=== PATIENT | male | born 1980 | race Hispanic/Latino ===

== ENCOUNTER 2018-04-20 11:31 | Emergency (ER) | payer OTHER, SELFPAY ==
--- NOTE | 2018-04-20 12:43 | RAD REPORT ---
EXAM DESCRIPTION: US - Scrotum Testicles - 04/20/2018 12:23 pm CLINICAL HISTORY: Persistent left-sided scrotal pain following trauma COMPARISON: None. FINDINGS: Testicular tissue is homogeneous. No intratesticular mass or intratesticular hemorrhage. D oppler evaluation shows a normal, symmetric intratesticular blood flow pattern within each testicle. Left epididymis is enlarged and slightly hyperemic relative to the right. No spermatocele or other ma ss within the left epididymis. Prominent veins are present bilaterally. Veins accentuated with Valsal va maneuver. IMPRESSION: Normal intratesticular blood flow. No testicular mass or hemorrhage. Mildly enlarged left epididymis with hyperemia relative to the right. Small bilateral varicoceles.
--- NOTE | 2018-04-20 12:56 | ER ---
Nurse's Notes [facility] Name: Noah Mendez Jr Age: 38 yrs Sex: Male : 1980 Arrival Date: 04/20/2018 Time: 11:35 Bed 20 Private MD: Ebenezer Garrett E Diagnosis: Testicular Pain s/p trauma Presentation: 04/20 11:47 Presenting complaint: Patient states: I got kneed in the left testicle on Thursday and la1 since then I am having intense pain down there. Pt states "it feels like it splint in half". Transition of care: patient was not received from another setting of care. Onset of symptoms was April 20, 2018. Risk Assessment: Do you want to hurt yourself or someone else? Patient reports no desire to harm self or others. Initial Sepsis Screen: Does the patient meet any 2 criteria? No. Patient's initial sepsis screen is negative. Does the patient have a suspected source of infection? No. Patient's initial sepsis screen is negative. Care prior to arrival: None. 11:47 Method Of Arrival: Ambulatory la1 11:47 Acuity: LINSEY 3 la1 Triage Assessment: 12:05 General: Appears in no apparent distress. uncomfortable, Behavior is cooperative, bp appropriate for age, anxious. Pain: Complains of pain in groin. Historical: - Allergies: 11:49 No Known Allergies; la1 - PMHx: 11:49 chronic back pain; Hypertension; la1 - PSHx: 11:49 None; la1 - Immunization history:: Adult Immunizations up to date. - Social history:: Smoking status: Patient/guardian denies using tobacco. - Ebola Screening: : No symptoms or risks identified at this time. Screenin:07 Abuse screen: Denies threats or abuse. Denies injuries from another. Nutritional bp screening: No deficits noted. Tuberculosis screening: No symptoms or risk factors identified. Fall Risk None identified. Assessment: 12:05 General: Appears in no apparent distress. uncomfortable, Behavior is cooperative, bp appropriate for age, anxious. Pain: Complains of pain in groin. Neuro: Level of Consciousness is awake, alert, obeys commands, Oriented to person, place, time, situation, Appropriate for age. Cardiovascular: No deficits noted. Respiratory: Airway is patent Respiratory effort is even, unlabored, Respiratory pattern is regular, symmetrical. GI: No signs and/or symptoms were reported involving the gastrointestinal system. : Swelling noted on scrotum. EENT: No deficits noted. Derm: No deficits noted. Musculoskeletal: Circulation, motion, and sensation intact. Range of motion: intact in all extremities. 12:11 Reassessment: PT TO U/S. bp 13:08 Reassessment: PT D/C HOME AMBULATORY, DX WITH TESTICULAR TRAUMA. bp Vital Signs: 11:49 BP 120 / 89; Pulse 66; Resp 16; Temp 97.6; Pulse Ox 98% on R/A; Weight 81.65 kg; Height la1 5 ft. 10 in. (177.80 cm); 13:08 BP 115 / 75; Pulse 67; Resp 14; Pulse Ox 98% ; bp 11:49 Body Mass Index 25.83 (81.65 kg, 177.80 cm) la1 ED Course: 11:35 Patient arrived in ED. mr 11:35 Ebenezer Garrett MD is Private Physician. mr 11:48 Triage completed. la1 11:49 Arm band placed on right wrist. la1 11:55 Merlyn Das [facility]-C [facility]. kb 11:55 Roni Morrison MD is Attending Physician. kb 12:05 Ranjith Velasco, RN is Primary Nurse. bp 12:07 Patient has correct armband on for positive identification. Placed in gown. Bed in low bp position. Call light in reach. Side rails up X2. 12:22 US Scrotum Testicles In Process Unspecified. EDMS 13:08 No provider procedures requiring assistance completed. Patient did not have IV access bp during this emergency room visit. Administered Medications: No medications were administered Outcome: 12:56 Discharge ordered by . kb 13:09 Discharged to home ambulatory. bp 13:09 Condition: stable 13:09 Discharge instructions given to patient, Instructed on discharge instructions, follow up and referral plans. Demonstrated understanding of instructions, follow-up care. 13:09 Patient left the ED. bp Signatures: Dispatcher [employer] EDMS Merlyn Das FNP-C FNP-Ckb Shweta Myrick AlondraShantanu, RN RN la1 Ranjith Velasco, RN RN bp
--- NOTE | 2018-04-20 12:56 | EDPHYS ---
Physician Documentation [facility] Name: Noah Mendez Jr Age: 38 yrs Sex: Male : 1980 Arrival Date: 04/20/2018 Time: 11:35 Bed 20 Private MD: Ebenezer Garrett E ED Physician Roni Morrison HPI: 04/20 12:13 This 38 yrs old Male presents to ER via Ambulatory with complaints of kb Testicular Pain. 12:13 The patient presents with scrotal pain, of the left side, with swelling. Onset: The kb symptoms/episode began/occurred 4 day(s) ago. Modifying factors: The symptoms are alleviated by nothing, the symptoms are aggravated by movement, pressure. Associated signs and symptoms: The patient has no apparent associated signs or symptoms. Severity of symptoms: At their worst the symptoms were moderate, in the emergency department the symptoms are unchanged. The patient has not experienced similar symptoms in the past. The patient has not recently seen a physician. Pt reports blunt trauma to scrotum on Thursday, pain to left testicle since then. Reports pain has been getting progressively worse. . Historical: - Allergies: 11:49 No Known Allergies; la1 - PMHx: 11:49 chronic back pain; Hypertension; la1 - PSHx: 11:49 None; la1 - Immunization history:: Adult Immunizations up to date. - Social history:: Smoking status: Patient/guardian denies using tobacco. - Ebola Screening: : No symptoms or risks identified at this time. ROS: 12:13 Constitutional: Negative for fever, chills, and weight loss, Cardiovascular: Negative kb for chest pain, palpitations, and edema, Respiratory: Negative for shortness of breath, cough, wheezing, and pleuritic chest pain, Abdomen/GI: Negative for abdominal pain, nausea, vomiting, diarrhea, and constipation, Back: Negative for injury and pain, MS/Extremity: Negative for injury and deformity, Skin: Negative for injury, rash, and discoloration, Neuro: Negative for headache, weakness, numbness, tingling, and seizure. 12:13 : Positive for testicular pain Exam: 12:13 Constitutional: This is a well developed, well nourished patient who is awake, alert, kb and in no acute distress. Head/Face: Normocephalic, atraumatic. Chest/axilla: Normal chest wall appearance and motion. Nontender with no deformity. No lesions are appreciated. Cardiovascular: Regular rate and rhythm with a normal S1 and S2. No gallops, murmurs, or rubs. Normal PMI, no JVD. No pulse deficits. Respiratory: Lungs have equal breath sounds bilaterally, clear to auscultation and percussion. No rales, rhonchi or wheezes noted. No increased work of breathing, no retractions or nasal flaring. Abdomen/GI: Soft, non-tender, with normal bowel sounds. No distension or tympany. No guarding or rebound. No evidence of tenderness throughout. Skin: Warm, dry with normal turgor. Normal color with no rashes, no lesions, and no evidence of cellulitis. MS/ Extremity: Pulses equal, no cyanosis. Neurovascular intact. Full, normal range of motion. Neuro: Awake and alert, GCS 15, oriented to person, place, time, and situation. Cranial nerves II-XII grossly intact. Motor strength 5/5 in all extremities. Sensory grossly intact. Cerebellar exam normal. Normal gait. 12:13 : Male external genitalia: swelling: testicle, tenderness, that is moderate. Vital Signs: 11:49 BP 120 / 89; Pulse 66; Resp 16; Temp 97.6; Pulse Ox 98% on R/A; Weight 81.65 kg; Height la1 5 ft. 10 in. (177.80 cm); 13:08 BP 115 / 75; Pulse 67; Resp 14; Pulse Ox 98% ; bp 11:49 Body Mass Index 25.83 (81.65 kg, 177.80 cm) la1 MDM: 11:55 Patient medically screened. kb 12:19 Data reviewed: vital signs, nurses notes. Data interpreted: Pulse oximetry: on room air kb is 98 %. Interpretation: normal. 12:55 Counseling: I had a detailed discussion with the patient and/or guardian regarding: the kb historical points, exam findings, and any diagnostic results supporting the discharge/admit diagnosis, radiology results, the need for outpatient follow up, a urologist, to return to the emergency department if symptoms worsen or persist or if there are any questions or concerns that arise at home. 04/20 11:59 Order name: Scrotum Testicles; Complete Time: 12:45 kb Administered Medications: No medications were administered Disposition: 18:41 Co-signature as Attending Physician, Roni Morrison MD available for consultation at ps1 all times. Disposition: 04/20/18 12:56 Discharged to Home. Impression: Testicular Pain s/p trauma. - Condition is Stable. - Discharge Instructions: Testicular Self-Exam, [id number]. - Medication Reconciliation Form, Thank You Letter, Antibiotic Education, Prescription Opioid Use form. - Follow up: Emergency Department; When: As needed; Reason: Worsening of condition. Follow up: Private Physician; When: 2 - 3 days; Reason: Recheck today's complaints, Continuance of care, Re-evaluation by your physician. Signatures: Dispatcher [employer] EDMS Merlyn Das, SAMUEL-C [employer]-Shantanu Phillips RN RN la1 Ranjith Velasco RN RN Roni Bentley MD MD ps1 Corrections: (The following items were deleted from the chart) 13:09 12:56 04/20/2018 12:56 Discharged to Home. Impression: Testicular Pain s/p trauma. bp Condition is Stable. Forms are Medication Reconciliation Form, Thank You Letter, Antibiotic Education, Prescription Opioid Use. Follow up: Emergency Department; When: As needed; Reason: Worsening of condition. Follow up: Private Physician; When: 2 - 3 days; Reason: Recheck today's complaints, Continuance of care, Re-evaluation by your physician. kb
== END 2018-04-20 13:09 | disposition home or self-care (01) ==
LOC: ER 11:31
DX: N50.812 Left testicular pain (principal); I10 Essential (primary) hypertension
CPT/HCPCS: 76870; 99283

== ENCOUNTER 2018-06-18 05:26 | Emergency (ER) | payer SELFPAY ==
[2018-06-18] MEDS ORDERED: LIDOCAINE 1% W/EPI 1:100,000 MDV 50 ML VIAL ONE (05:57)
--- NOTE | 2018-06-18 06:00 | EDPHYS ---
Physician Documentation [facility] Name: Noah Mendez Jr Age: 38 yrs Sex: Male : 1980 Arrival Date: 06/18/2018 Time: 05:29 Bed 5 Private MD: Ebenezer Garrett E ED Physician Bart Moffett HPI: 06/18 05:49 This 38 yrs old Male presents to ER via Ambulatory with complaints of Boil. darern 05:49 The patient presents with an abscess of the right gluteus alanna. Description: The darren affected area is small, confluent. Description: The affected area is small, confluent, erythematous, fluctuant, pointed, swollen. Onset: The symptoms/episode began/occurred 1 week(s) ago. Possible cause(s): abrasion. Associated signs and symptoms: The patient has no apparent associated signs or symptoms. Modifying factors: the symptoms are alleviated by remaining still, the symptoms are aggravated by walking, pressure, squeezing the lesion and expressing the contents, touching. Historical: - Allergies: 05:42 No Known Allergies; tl2 - Home Meds: 05:42 [place] 10-325 mg Oral tab 1 tab every 6 hours [Active]; Soma 350 mg Oral tab 1 tab 3 tl2 times per day [Active]; - PMHx: 05:42 chronic back pain; Hypertension; Pt has lost weight and BP has been controlled without tl2 medication; - Immunization history:: Adult Immunizations up to date. - Social history:: Smoking status: Patient/guardian denies using tobacco. - Ebola Screening: : No symptoms or risks identified at this time. - Family history:: not pertinent. ROS: 05:49 Constitutional: Negative for fever, chills, and weight loss, Eyes: Negative for injury, darren pain, redness, and discharge, ENT: Negative for injury, pain, and discharge, Neck: Negative for injury, pain, and swelling, Cardiovascular: Negative for chest pain, palpitations, and edema, Respiratory: Negative for shortness of breath, cough, wheezing, and pleuritic chest pain, Abdomen/GI: Negative for abdominal pain, nausea, vomiting, diarrhea, and constipation, Back: Negative for injury and pain, : Negative for injury, bleeding, discharge, and swelling, MS/Extremity: Negative for injury and deformity, Neuro: Negative for headache, weakness, numbness, tingling, and seizure, Psych: Negative for depression, anxiety, suicide ideation, homicidal ideation, and hallucinations, Allergy/Immunology: Negative for hives, rash, and allergies, Endocrine: Negative for neck swelling, polydipsia, polyuria, polyphagia, and marked weight changes. 05:49 Skin: Positive for abscess, discoloration, erythema, of the right gluteus alanna. Exam: 05:49 Constitutional: This is a well developed, well nourished patient who is awake, alert, darren and in no acute distress. Head/Face: Normocephalic, atraumatic. Eyes: Pupils equal round and reactive to light, extra-ocular motions intact. Lids and lashes normal. Conjunctiva and sclera are non-icteric and not injected. Cornea within normal limits. Periorbital areas with no swelling, redness, or edema. ENT: Nares patent. No nasal discharge, no septal abnormalities noted. Tympanic membranes are normal and external auditory canals are clear. Oropharynx with no redness, swelling, or masses, exudates, or evidence of obstruction, uvula midline. Mucous membranes moist. Neck: Trachea midline, no thyromegaly or masses palpated, and no cervical lymphadenopathy. Supple, full range of motion without nuchal rigidity, or vertebral point tenderness. No Meningismus. Chest/axilla: Normal chest wall appearance and motion. Nontender with no deformity. No lesions are appreciated. Cardiovascular: Regular rate and rhythm with a normal S1 and S2. No gallops, murmurs, or rubs. Normal PMI, no JVD. No pulse deficits. Respiratory: Lungs have equal breath sounds bilaterally, clear to auscultation and percussion. No rales, rhonchi or wheezes noted. No increased work of breathing, no retractions or nasal flaring. Abdomen/GI: Soft, non-tender, with normal bowel sounds. No distension or tympany. No guarding or rebound. No evidence of tenderness throughout. Back: No spinal tenderness. No costovertebral tenderness. Full range of motion. Male : Normal genitalia with no discharge or lesions. MS/ Extremity: Pulses equal, no cyanosis. Neurovascular intact. Full, normal range of motion. Neuro: Awake and alert, GCS 15, oriented to person, place, time, and situation. Cranial nerves II-XII grossly intact. Motor strength 5/5 in all extremities. Sensory grossly intact. Cerebellar exam normal. Normal gait. Psych: Awake, alert, with orientation to person, place and time. Behavior, mood, and affect are within normal limits. 05:49 Skin: Appearance: Color: erythematous, black, Temperature: warm, abscess, that is small, of the right hip, with induration, with surrounding cellulitis, that is moderate. Vital Signs: 05:42 BP 145 / 101; Pulse 81; Resp 18; Temp 97.8(O); Pulse Ox 98% on R/A; Weight 81.65 kg; tl2 Height 5 ft. 9 in. (175.26 cm); Pain 10/10; 06:58 BP 135 / 84; Pulse 71; Resp 18; Pulse Ox 100% on R/A; tl2 05:42 Body Mass Index 26.58 (81.65 kg, 175.26 cm) tl2 Procedures: 06:02 I \T\ D: Incision and drainage was performed for an abscess of the right Prepped with [facility] Betadine, alcohol, Anesthetized with 10 ml's 1% Lidocaine w/ Epi. Incised with #11 blade. Drained moderate amount Packed with iodoform gauze, Dressing: non-Adherent dressing, the patient tolerated the procedure well. MDM: 05:45 Patient medically screened. [facility] 05:49 Data reviewed: vital signs, nurses notes. [facility] 06/18 05:49 Order name: Dressing - Wound; Complete Time: 06:[address] [facility] 06/18 05:49 Order name: Gloves, Sterile; Complete Time: 05:[address] [facility] 06/18 05:49 Order name: Setup Suture Tray; Complete Time: 05:[address] [facility] 06/18 06:03 Order name: Blood Sugar; Complete Time: 06:[address] [facility] Administered Medications: 06:23 Drug: Doxycycline 200 mg Route: PO; tl2 06:58 Follow up: Response: No adverse reaction tl2 06:23 Drug: Bactrim (160 mg-800 mg (DS) 1 tablet Route: PO; tl2 06:59 Follow up: Response: No adverse reaction tl2 06:35 Drug: Lidocaine-Epinephrine -1%: (1:100,000) 10 ml Volume: 20 ml; Route: Infiltration; tl2 Point of Care Testing: Blood Glucose: 06:20 Blood Glucose: 130 mg/dL; oe Ranges: Critical Glucose Levels:Adult <50 mg/dl or >400 mg/dl <40 mg/dl or >180 mg/dl Disposition: 06/18/18 05:59 Discharged to Home. Impression: Cutaneous abscess of right lower limb. - Condition is Stable. - Discharge Instructions: Skin Abscess, Incision and Drainage, Skin Abscess, [id number], Incision and Drainage, Care After. - Prescriptions for Bactroban 2 % Topical Ointment - Apply to affected area 1 application by TOPICAL route every 12 hours; 30 gram. Tylenol- Codeine #3 300-30 mg Oral Tablet - take 2 tablets by ORAL route every 6 hours As needed; 26 tablet. Doxycycline Hyclate 100 mg Oral Tablet - take 1 tablet by ORAL route every 12 hours; 20 tablet. Bactrim DS 800- 160 mg Oral Tablet - take 1 tablet by ORAL route every 12 hours for 10 days; 28 tablet. - Medication Reconciliation Form, Thank You Letter, Antibiotic Education, Prescription Opioid Use form. - Follow up: Ebenezer Garrett MD; When: 2 - 3 days; Reason: Recheck today's complaints, Continuance of care, Re-evaluation by your physician. - Problem is new. - Symptoms have improved. Signatures: Bart Moffett MD MD cha Knox, Taylor, RN RN tl2 Corrections: (The following items were deleted from the chart) 06:59 05:59 06/18/2018 05:59 Discharged to Home. Impression: Cutaneous abscess of right lower tl2 limb. Condition is Stable. Forms are Medication Reconciliation Form, Thank You Letter, Antibiotic Education, Prescription Opioid Use. Follow up: Ebenezer Grarett; When: 2 - 3 days; Reason: Recheck today's complaints, Continuance of care, Re-evaluation by your physician. Problem is new. Symptoms have improved. darren
--- NOTE | 2018-06-18 06:00 | ER ---
Nurse's Notes [facility] Name: Noah Mendez Jr Age: 38 yrs Sex: Male : 1980 Arrival Date: 06/18/2018 Time: 05:29 Bed 5 Private MD: Ebenezer Garrett E Diagnosis: Cutaneous abscess of right lower limb Presentation: 06/18 05:39 Presenting complaint: Patient states: abscess on left buttock, redness and swelling tl2 noted. No drainage. Eschar in center of abscess noted. Pt denies fever or feeling ill. States White is not helping pain. Transition of care: patient was not received from another setting of care. Onset of symptoms was June 11, 2018. Risk Assessment: Do you want to hurt yourself or someone else? Patient reports no desire to harm self or others. Initial Sepsis Screen: Does the patient meet any 2 criteria? No. Patient's initial sepsis screen is negative. Does the patient have a suspected source of infection? No. Patient's initial sepsis screen is negative. Care prior to arrival: None. 05:39 Method Of Arrival: Ambulatory tl2 05:39 Acuity: LINSEY 3 tl2 Triage Assessment: 05:42 General: Appears in no apparent distress. comfortable, Behavior is calm, cooperative, tl2 appropriate for age. General: Denies fever, feeling ill. Pain: Complains of pain in left buttock Pain does not radiate. Pain currently is 10 out of 10 on a pain scale. Aggravated by weight bearing. Neuro: Level of Consciousness is awake, alert, obeys commands, Oriented to person, place, time, situation. Cardiovascular: Denies chest pain. Respiratory: Airway is patent Respiratory effort is even, unlabored, Respiratory pattern is regular, symmetrical. GI: No signs and/or symptoms were reported involving the gastrointestinal system. Derm: Skin is pink, warm \T\ dry. Abscess located on right gluteus alanna is half dollar sized, has no drainage, is red, is raised, was lanced by patient prior to arrival, Pt states he has popped it over the last week. No drainage noted at this time. Historical: - Allergies: 05:42 No Known Allergies; tl2 - Home Meds: 05:42 White 10-325 mg Oral tab 1 tab every 6 hours [Active]; Soma 350 mg Oral tab 1 tab 3 tl2 times per day [Active]; - PMHx: 05:42 chronic back pain; Hypertension; Pt has lost weight and BP has been controlled without tl2 medication; - Immunization history:: Adult Immunizations up to date. - Social history:: Smoking status: Patient/guardian denies using tobacco. - Ebola Screening: : No symptoms or risks identified at this time. - Family history:: not pertinent. Screenin:46 Abuse screen: Denies threats or abuse. Nutritional screening: No deficits noted. tl2 Tuberculosis screening: No symptoms or risk factors identified. Fall Risk None identified. Assessment: 05:42 General: see triage assessment. tl2 06:56 Reassessment: Patient appears in no apparent distress at this time. Patient and/or tl2 family updated on plan of care and expected duration. Pain level reassessed. Patient is alert, oriented x 3, equal unlabored respirations, skin warm/dry/pink. pt verbalized understanding of discharge instructions, need for follow up and prescription usage and wound care. Vital Signs: 05:42 BP 145 / 101; Pulse 81; Resp 18; Temp 97.8(O); Pulse Ox 98% on R/A; Weight 81.65 kg; tl2 Height 5 ft. 9 in. (175.26 cm); Pain 10/10; 06:58 BP 135 / 84; Pulse 71; Resp 18; Pulse Ox 100% on R/A; tl2 05:42 Body Mass Index 26.58 (81.65 kg, 175.26 cm) tl2 ED Course: 05:29 Patient arrived in ED. es 05:29 Ebenezer Garrett MD is Private Physician. es 05:39 Jacki Carvajal, DAVID is Primary Nurse. tl2 05:40 Triage completed. tl2 05:42 Arm band placed on right wrist. tl2 05:44 Bart Moffett MD is Attending Physician. darren 05:46 Patient has correct armband on for positive identification. Placed in gown. Bed in low tl2 position. Call light in reach. Side rails up X 1. 05:57 Ebenezer Garrett MD is Referral Physician. darren 06:20 Assist provider with I \T\ D: of an abscess on left buttock Set up I\T\D tray. Performed by tl 2 Bart Moffett MD Wound packed. Dressing with Neosporin and ABD pad, Patient tolerated well. Patient did not have IV access during this emergency room visit. Administered Medications: 06:23 Drug: Doxycycline 200 mg Route: PO; tl2 06:58 Follow up: Response: No adverse reaction tl2 06:23 Drug: Bactrim (160 mg-800 mg (DS) 1 tablet Route: PO; tl2 06:59 Follow up: Response: No adverse reaction tl2 06:35 Drug: Lidocaine-Epinephrine -1%: (1:100,000) 10 ml Volume: 20 ml; Route: Infiltration; tl2 Point of Care Testing: Blood Glucose: 06:20 Blood Glucose: 130 mg/dL; oe Ranges: Outcome: :59 Discharge ordered by . darren 06:58 Discharged to home ambulatory. tl2 06:58 Condition: stable 06:58 Discharge instructions given to patient, Instructed on discharge instructions, follow up and referral plans. medication usage, wound care, Demonstrated understanding of instructions, follow-up care, medications, wound care, Prescriptions given X 4. 06:59 Patient left the ED. tl2 Signatures: Bart Moffett MD MD cha Salyer, Edna es Knox, Taylor, RN RN tl2 Kenneth Correa
[2018-06-18] MEDS ORDERED: SMZ./TMP. 800/160 MG TABLET ONE (06:26)
[2018-06-18] MEDS ORDERED: DOXYCYCLINE 100 MG CAP PO ONE (06:26)
== END 2018-06-18 06:59 | disposition home or self-care (01) ==
LOC: ER 05:26
PROC: 0J990ZZ Drainage of Buttock Subcutaneous Tissue and Fascia, Open Approach (ICD-10-PCS; principal; 2018-06-18)
DX: L02.31 Cutaneous abscess of buttock (principal); I10 Essential (primary) hypertension
CPT/HCPCS: 82962; 99283

== ENCOUNTER 2018-07-11 00:24 | Emergency (ER) | payer SELFPAY ==
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
[2018-07-11] MEDS ORDERED: KETOROLAC 30 MG/ML INJ ONE (01:02)
== END 2018-07-11 01:51 | disposition home or self-care (01) ==
LOC: ER 00:24
DX: M54.12 Radiculopathy, cervical region (principal); V49.50XA Passenger injured in collision with unspecified motor vehicles in traffic accident, initial encounter; I10 Essential (primary) hypertension
CPT/HCPCS: 96372; 99284

== ENCOUNTER 2020-01-27 01:34 | Emergency (ER) | payer OTHER ==
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
[2020-01-27 02:00] VITALS: BP 170/130; TEMP 98.2; O2SAT 97
== END 2020-01-27 01:53 | disposition left against medical advice (07) ==
LOC: ER 01:34
DX: R41.82 Altered mental status, unspecified (principal); I10 Essential (primary) hypertension
CPT/HCPCS: 93005; 99283